=== PATIENT | male | born 1990 | race African-American/Black ===

== ENCOUNTER 2021-10-02 16:41 | Emergency (ER) | payer OTHER ==
[~2021-10-02] VITALS: Ht 170.2 cm; Wt 74.8 kg
--- NOTE | 2021-10-02 17:14 | NUR ---
Mindy aranda in [facility] - 10/02/21 at 1726 by SAMMI Back from [place] updated with plan of care
[2021-10-02 17:22] VITALS: BP 135/82
--- NOTE | 2021-10-02 17:45 | NUR ---
Ambulatory- Gait even and steady BRP Urine collected (Clear) specimen sent to lab
[2021-10-02 17:54] LABS: BASOPHILS % (AUTO) 0.5 % (0.0-2.0); EOSINOPHILS % (AUTO) 1.8 % (0.0-6.0); HEMATOCRIT 44 % (39-51); LYMPHOCYTES % (AUTO) 32.9 % (20.0-44.0); MEAN CORPUSCULAR HGB CONC 35 g/dl (31.0-36.0); MEAN CORPUSCULAR VOLUME 84 fL (80-96); MONOCYTES # (AUTO) 0.6 K/uL (0.1-1.30); NEUTROPHILS # (AUTO) 5.2 K/uL (1.8-8.9); NEUTROPHILS % (AUTO) 57.8 % (43.0-81.0); PLATELET COUNT (AUTO) 234 K/uL (150-450)
[2021-10-02 18:07] LABS: BILIRUBIN,URINE NEGATIVE (NEGATIVE); COLOR,URINE YELLOW (YELLOW); LEUKOCYTE ESTERASE ,URINE NEGATIVE (NEGATIVE); NITRITE, URINE NEGATIVE (NEGATIVE); PROTEIN,URINE NEGATIVE (NEGATIVE); UGLUCOSE NEGATIVE (NEGATIVE); UROBILINOGEN,URINE 0.2 EU/dL (0.2)
[2021-10-02 19:14] LABS: CALCIUM, SERUM 9.1 mg/dL (8.5-10.1); CREATININE 1.1 mg/dL (0.6-1.3); POTASSIUM 4.2 mmol/L (3.5-5.1)
[2021-10-02 19:21] LABS: ALBUMIN 4.4 g/dL (3.4-5.0); BILIRUBIN,DIRECT 0.1 mg/dL (0.0-0.2); BILIRUBIN,TOTAL 0.5 mg/dL (0.2-1.0); TOTAL PROTEIN, SERUM 8.6 g/dL (6.4-8.2)
[2021-10-02] MEDS ORDERED: CYCL5TAB PO (19:35)
[2021-10-02] MEDS ORDERED: NAPR-1009 PO (19:35)
== END 2021-10-02 23:46 | disposition home or self-care (01) ==
LOC: ER 17:00
DX: M54.6 Pain in thoracic spine (principal); R20.2 Paresthesia of skin; L25.9 Unspecified contact dermatitis, unspecified cause; M79.622 Pain in left upper arm; M79.621 Pain in right upper arm
CPT/HCPCS: 36415; 71045-TC; 72070-TC; 76770-TC; 80048-TC; 80076-TC; 83690-TC; 85025-TC

== ENCOUNTER 2022-05-24 11:35 | Emergency (ER) | payer OTHER ==
[~2022-05-24] VITALS: Ht 172.7 cm; Wt 78.0 kg
[~2022-05-24 11:35] MED LIST: CYCL5TAB PO; NAPR-1009 PO
[2022-05-24 12:03] VITALS: BP 122/81
--- NOTE | 2022-05-24 12:03 | NUR ---
C/O GENERALIZED BODY RASH X 1 WEEK. DENIES SOB.
[2022-05-24] MEDS ORDERED: KETO15CR2 TP (12:21)
--- NOTE | 2022-05-24 12:34 | NUR ---
Patient discharged to home in stable condition. Written and verbal after care instructions given. Patient verbalizes understanding of instruction.
== END 2022-05-24 12:36 | disposition home or self-care (01) ==
LOC: ER 11:43
DX: B36.0 Pityriasis versicolor (principal); R21 Rash and other nonspecific skin eruption; Z79.899 Other long term (current) drug therapy

== ENCOUNTER 2023-03-12 20:14 | Emergency (ER) | payer OTHER ==
[~2023-03-12] VITALS: Ht 170.2 cm; Wt 74.8 kg
[~2023-03-12 20:14] MED LIST changes: +KETO15CR2 TP
[2023-03-12 21:26] LABS: APPEARANCE,URINE CLEAR (CLEAR); BILIRUBIN,URINE NEGATIVE (NEGATIVE); BLOOD, URINE NEGATIVE Ery/uL (NEGATIVE); COLOR,URINE YELLOW (YELLOW); KETONES,URINE NEGATIVE (NEGATIVE); LEUKOCYTE ESTERASE ,URINE NEGATIVE (NEGATIVE); NITRITE, URINE NEGATIVE (NEGATIVE); PROTEIN,URINE 1+ mg/dl (NEGATIVE); UGLUCOSE NEGATIVE (NEGATIVE); UROBILINOGEN,URINE 0.2 EU/dL (0.2)
[2023-03-12 21:34] LABS: ADD URINE CULTURE NO; BACTERIA,URINE None seen /HPF (None Seen); MUCUS,URINE Few /LPF (None Seen); RBC,URINE 0-2 /HPF (0-2); SQUAMOUS EPITHELIAL CELL,UR 0-2 /HPF (None Seen); WBC,URINE 0-2 /HPF (0-3)
[2023-03-12] MEDS ORDERED: IBUP-1955 PO (21:34)
[2023-03-12 21:56] VITALS: BP 134/72; TEMP 98.1; O2SAT 98
== END 2023-03-12 21:57 | disposition home or self-care (01) ==
LOC: ER 20:18
DX: N50.812 Left testicular pain (principal); N50.811 Right testicular pain
CPT/HCPCS: 76870-TC; 81001